=== PATIENT | female | born 1965 | race African-American/Black ===

== ENCOUNTER 2018-05-13 14:34 | Inpatient (IN) | END 2018-05-23 13:12 | disposition home or self-care (01) | DRG 375 ==

== ENCOUNTER 2018-06-23 13:46 | Emergency (ER) | payer MEDICAID ==
[~2018-06-23] VITALS: Ht 162.6 cm; Wt 61.4 kg
[~2018-06-23 13:46] MED LIST: FER325 PO
[2018-06-23 13:51] VITALS: Ht 162.6 cm; Wt 61.4 kg
[2018-06-23] MEDS ORDERED: SOD CHLORIDE 0.9% 500 ML IV STA (14:03)
[2018-06-23] MEDS ORDERED: AMLO5TAB4 PO (14:08)
[2018-06-23] MEDS ORDERED: FER325 PO (14:08)
[2018-06-23] MEDS ORDERED: SOD CHLORIDE 0.9% 0 ML IV ONE (15:06)
[2018-06-23] MEDS ORDERED: POTASSIUM CHLORIDE (SR) 20 MEQ TAB PO STA (15:09)
[2018-06-23] MEDS ORDERED: MAGNESIUM SULFATE 2 GM/50 ML 50 ML IVPB ONE (15:30)
--- NOTE | 2018-06-23 17:29 | ERD ---
ER Documentation Chief Complaint Chief Complaint R881, fr home, dizziness while make breakfast this am HPI 53-year-old female with a history of invasive adenocarcinoma of the sigmoid colon presenting with complaints of dizziness intermittently today. She states that the last time she felt like this she had anemia and needed a blood transfusion. Her last transfusion was on June 10, 2018. She was admitted here in May than transferred to another hospital. She declined any radiation or surgery as she is from [facility] and plans on returning to [facility] next week. She would rather do all of her treatment there. He denies any chest pain, shortness of breath, headache, nausea, vomiting. She has chronic abdominal pain without any worsening. She denies any hematochezia but has dark stools. She is on iron supplementation. ROS All systems reviewed and are negative except as per history of present illness. Medications Home Meds Reported Medications Amlodipine Besylate* (Norvasc*) 5 Mg Tablet, 5 MG PO DAILY, TAB 06/23/18 Ferrous Sulfate* (Ferrous Sulfate*) 325 Mg Tabec, 325 MG PO BID, TAB 06/23/18 Discontinued Reported Medications Ferrous Sulfate* (Ferrous Sulfate*) 325 Mg Tabec, 325 MG PO DAILY, TAB 05/13/18 Allergies Allergies: Coded Allergies: No Known Allergy (Unverified , 06/23/18) PMhx/Soc History of Surgery: Yes (c section, abdominal surgery ) Anesthesia Reaction: No Hx Neurological Disorder: No Hx Respiratory Disorders: No Hx Cardiac Disorders: Yes (htn ) Hx Psychiatric Problems: No Hx Miscellaneous Medical Probl: Yes (colon CA) Hx Alcohol Use: No Hx Substance Use: No Hx Tobacco Use: No Smoking Status: Never smoker FmHx Family History: No diabetes Physical Exam Vitals Vital Signs Date Temp Pulse Resp B/P (MAP) Pulse Ox O2 O2 Flow FiO2 Time Delivery Rate 06/23/18 98.8 86 19 122/82 100 Room Air 18:15 (95) 06/23/18 98.3 86 19 128/84 100 Room Air 18:00 (99) 06/23/18 98.8 85 18 126/85 100 Room Air 17:47 (99) 06/23/18 85 21 143/81 100 Room Air 16:20 (101) 06/23/18 92 18 138/84 100 Room Air 13:52 (102) 06/23/18 97.6 72 18 119/67 98 13:51 (84) Physical Exam Const: No acute distress Head: Atraumatic Eyes: Conjunctival injection ENT: Normal External Ears, Nose and Mouth. Neck: Full range of motion. No meningismus. Resp: Clear to auscultation bilaterally Cardio: Regular rate and rhythm, no murmurs Abd: Distended, palpable lower abdominal large mass, nontender to palpation Skin: No petechiae or rashes Back: No midline or flank tenderness Ext: No cyanosis, or edema Neur: Awake and alert Psych: Normal Mood and Affect Result Diagram: 06/23/18 1420 06/23/18 142 Results 24 hrs Laboratory Tests Test 06/23/18 14:20 White Blood Count 8.0 10^3/ul Red Blood Count 2.18 10^6/ul Hemoglobin 5.7 g/dl Hematocrit 18.4 % Mean Corpuscular Volume 84.4 fl Mean Corpuscular Hemoglobin 26.1 pg Mean Corpuscular Hemoglobin Concent 31.0 g/dl Red Cell Distribution Width 15.7 % Platelet Count 475 10^3/UL Mean Platelet Volume 8.6 fl Immature Granulocytes % 0.500 % Neutrophils % % Segmented Neutrophils % (Manual) 76 % Band Neutrophils % (Manual) 4 % Lymphocytes % % Lymphocytes % (Manual) 12 % Monocytes % % Monocytes % (Manual) 3 % Eosinophils % % Eosinophils % (Manual) 5 % Basophils % % Nucleated Red Blood Cells % 0.0 /100WBC Immature Granulocytes # 0.040 10^3/ul Neutrophils # 10^3/ul Neutrophils # (Manual) 6.1 10^3/ul Band Neutrophils # 0.3 10^3/ul Lymphocytes (Manual) 0.9 10^3/ul Lymphocytes # 10^3/ul Monocytes # 10^3/ul Monocytes # (Manual) 0.2 10^3/ul Eosinophils # 10^3/ul Basophils # 10^3/ul Nucleated Red Blood Cells # 10^3/ul Pathologist Review (Hematology) YES Platelet Estimate NORMAL Polychromasia 2+ Hypochromasia 2+ Poikilocytosis 1+ Prothrombin Time 13.3 Sec Prothrombin Time Ratio 1.0 INR International Normalized Ratio 1.00 Activated Partial Thromboplast Time 26.8 Sec Sodium Level 134 mmol/L Potassium Level 3.2 mmol/L Chloride Level 94 mmol/L Carbon Dioxide Level 31 mmol/L Anion Gap 9 Blood Urea Nitrogen 13 mg/dl Creatinine 0.74 mg/dl Est Glomerular Filtrat Rate mL/min > 60 mL/min Glucose Level 110 mg/dl Calcium Level 8.9 mg/dl Total Bilirubin 0.0 mg/dl Direct Bilirubin 0.00 mg/dl Indirect Bilirubin 0.0 mg/dl Aspartate Amino Transf (AST/SGOT) 29 IU/L Alanine Aminotransferase (ALT/SGPT) 16 IU/L Alkaline Phosphatase 77 IU/L Total Protein 7.1 g/dl Albumin 3.4 g/dl Globulin 3.70 g/dl Albumin/Globulin Ratio 0.91 Current Medications Medications Dose Sig/Earle Start Time Status Last (Trade) Ordered Route PRN Stop Time Admin Dose Reason Admin Sodium 500 ml @ Q1H STAT 06/23/18 DC 06/23/18 Chloride 500 mls/hr IV 14:03 14:09 06/23/18 15:02 Sodium 0 ml @ 0 Q0M ONCE 06/23/18 DC 06/23/18 Chloride mls/hr IV 15:06 15:06 06/23/18 15:09 Magnesium 50 ml @ 25 ONCE ONCE 06/23/18 DC 06/23/18 Sulfate mls/hr IVPB 15:30 15:23 06/23/18 17:29 Potassium 40 meq ONCE STAT 06/23/18 DC 06/23/18 Chloride PO 15:09 15:24 (Klor-Con 20) 06/23/18 15:10 Procedures/MDM EMERGENT LABS AND DIAGNOSTIC STUDIES: Lab Results above were reviewed and interpreted by me. CBC: Severe anemia, thrombocytosis BMP: Mild hypokalemia. No evidence of electrolyte abnormality, acidosis, alkalosis, renal failure, hypoglycemia 12-lead EKG was interpreted by Melisa Ramos MD: Normal Sinus Rhythm Normal axis Normal intervals No acute ST or T wave changes suggestive of acute ischemia or STEMI. Initial Nursing notes reviewed. Previous Medical Records requested via the Electronic Health Record. EMERGENCY DEPARTMENT COURSE / MEDICAL DECISION MAKING: Patient is presenting with dizziness but is hemodynamically stable without evidence of acute coronary syndrome or arrhythmia. Labs are notable for severe anemia. 2 units of PRBCs were ordered. Patient was consented for blood transfusion. After blood transfusion is complete, the patient is appropriate for discharge with continued outpatient follow-up. Return precautions were already discussed with her. She will be signed out to the oncoming ED physician pending blood transfusion completion and discharge if remains stable. Critical Care Management of Symptomatic Anemia: Time: 35 minutes Treatments/Evaluations: Close monitoring and management of bleeding sources while maintaining tight balance of fluid. With judicious assessment of anemia, coagulopathy and thrombocytopenia, while considering correction with blood products and medical therapy. Patient's blood pressure was elevated (>120/80) but appears stable without evidence of hypertensive emergency or urgency. The patient was counseled about the risks of hypertension and urged to pursue outpatient monitoring and therapy within a week with their primary care physician. Departure Diagnosis: Primary Impression: Severe anemia Additional Impressions: Symptomatic anemia Dizziness History of colon cancer Condition: Stable BERONICA RAMOS MD Jun 23, 2018 17:29
[2018-06-23 18:15] VITALS: BP 122/82; PULSE 86; RESP 19
== END 2018-06-23 23:45 | disposition home or self-care (01) ==
LOC: E/R 13:46
DX: D64.9 Anemia, unspecified (principal); I10 Essential (primary) hypertension; R10.9 Unspecified abdominal pain; Z85.038 Personal history of other malignant neoplasm of large intestine
CPT/HCPCS: 36430; 80053; 85025; 85610; 85730; 86850; 86900; 86901; 86920; 93005; 96361; 96365; 96366; J3475; J7040; P9016; Z7502; Z7610